=== PATIENT | female | born 1970 ===

== ENCOUNTER 2019-06-23 10:03 | Emergency (ER) | payer SELFPAY ==
--- NOTE | 2019-06-23 10:30 | NUR ---
PER REGISTRATION STAFF PT SAID SHE WAS LEAVING AND WALKED OUT.
== END 2019-06-23 10:33 | disposition left against medical advice (07) ==
LOC: ER 10:05
DX: M25.561 Pain in right knee (principal); Z53.21 Procedure and treatment not carried out due to patient leaving prior to being seen by health care provider